=== PATIENT | male | born 2005 | race African-American/Black ===

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

== ENCOUNTER 2024-10-23 15:59 | Emergency (ER) | payer OTHER ==
[~2024-10-23] VITALS: Ht 185.4 cm; Wt 73.9 kg
[2024-10-23] MEDS ORDERED: NAPROSYN500 MG PO (16:59)
[2024-10-23] MEDS ORDERED: Acetaminophen/Hydrocodone 5 MG/325 MG TABLET PO ONE (17:05)
[2024-10-23] MEDS ORDERED: Ketorolac Tromethamine 60 MG/2 ML VIAL IM ONE (17:05)
== END 2024-10-23 17:17 | disposition home or self-care (01) ==
LOC: ED 15:59
DX: S93.402A Sprain of unspecified ligament of left ankle, initial encounter (principal); X50.1XXA Overexertion from prolonged static or awkward postures, initial encounter; Y93.67 Activity, basketball; Y92.89 Other specified places as the place of occurrence of the external cause; Y99.8 Other external cause status